=== PATIENT | male | born 1940 | race Caucasian/White ===

== ENCOUNTER 2021-12-30 15:40 | Emergency (ER) | payer OTHER, MEDICARE ==
[2021-12-30] MEDS ORDERED: HYDROcodone/Acetaminophen 10/325 mg Tablet ONE (17:02)
[2021-12-30] MEDS ORDERED: Fentanyl 100 MCG/2 ML VIAL ONE (17:48)
[2021-12-30 19:24] LABS: #Monocytes 0.6 10x3/uL (0.0-1.1); #Neutrophils 15.8 10x3/uL (1.5-8.4); %Basophils 0.2 % (0.0-2.0); %Monocytes 3.2 % (0.0-10.0); Hemoglobin 12.5 g/dL (13.5-17.5); Mean Corpuscular HGB CONC 33.2 g/dL (32.0-36.0); Mean Corpuscular Hemoglobin 31.1 pg (27.0-33.0); Mean Corpuscular Volume 93.5 fl (81.2-95.1); Mean Platelet Volume 9.8 fl (7.4-10.4); Platelet Count 279 10x3/uL (150-450); RBC Distribution Width 13.1 % (11.5-14.5); Red Blood Cell (RBC) Count 4.02 10x6/uL (4.32-5.72); White Blood Cell (WBC) Count 17.3 10x3/uL (3.5-10.5)
[2021-12-30 19:25] LABS: Anion Gap 19 mmol/L (10-20); BUN (Urea Nitrogen) 10 mg/dL (8.4-25.7); Calc. Creatinine Clearance 0 mL/min (70-130); Calcium 9.6 mg/dL (7.8-10.44); Carbon Dioxide 24 mmol/L (23-31); Chloride 95 mmol/L (98-107); Estimated GFR 86; Glucose 160 mg/dL (83-110); Potassium 4.7 mmol/L (3.5-5.1); Sodium 133 mmol/L (136-145)
== END 2021-12-30 19:32 | disposition home or self-care (01) ==
LOC: CSHERS 15:40
DX: S42.201A Unspecified fracture of upper end of right humerus, initial encounter for closed fracture (principal); S09.90XA Unspecified injury of head, initial encounter; I25.10 Atherosclerotic heart disease of native coronary artery without angina pectoris; E11.9 Type 2 diabetes mellitus without complications; I10 Essential (primary) hypertension; Z95.0 Presence of cardiac pacemaker; W01.0XXA Fall on same level from slipping, tripping and stumbling without subsequent striking against object, initial encounter
CPT/HCPCS: 36415; 70450; 80048; 85025; 96372; J3010

== ENCOUNTER 2023-01-14 19:20 | Inpatient (IN) | payer MEDICARE ==
[2023-01-14 21:28] LABS: #Basophils 0.1 10x3/uL (0.0-0.2); #Monocytes 1.3 10x3/uL (0.0-1.1); #Neutrophils 15.4 10x3/uL (1.5-8.4); %Basophils 0.3 % (0.0-2.0); %Eosinophils 0.1 % (0.0-6.0); %Lymphocytes 4.9 % (18.0-47.0); %Monocytes 7.2 % (0.0-10.0); %Neutrophils 86.9 % (40.0-75.0); Hematocrit 37.8 % (38.8-50.0); Hemoglobin 12.9 g/dL (13.5-17.5); Mean Corpuscular HGB CONC 34.1 g/dL (32.0-36.0); Mean Corpuscular Hemoglobin 31.2 pg (27.0-33.0); Mean Corpuscular Volume 91.5 fl (81.2-95.1); Mean Platelet Volume 9.1 fl (7.4-10.4); Platelet Count 381 10x3/uL (150-450); RBC Distribution Width 14.1 % (11.5-14.5); Red Blood Cell (RBC) Count 4.13 10x6/uL (4.32-5.72); White Blood Cell (WBC) Count 17.7 10x3/uL (3.5-10.5)
[2023-01-14 21:39] LABS: ALT (SGPT) 14 U/L (8-55); AST (SGOT) 22 U/L (5-34); Alkaline Phosphatase 134 U/L (40-110); Anion Gap 15 mmol/L (10-20); BUN (Urea Nitrogen) 9 mg/dL (8.4-25.7); Bilirubin, Total 1.1 mg/dL (0.2-1.2); Calc. Creatinine Clearance 0 mL/min (70-130); Calcium 8.5 mg/dL (7.8-10.44); Carbon Dioxide 26 mmol/L (23-31); Chloride 90 mmol/L (98-107); Estimated GFR 88; Globulin 2.9 g/dL (2.4-3.5); Glucose 202 mg/dL (83-110); Magnesium 1.4 mg/dL (1.6-2.6); Potassium 3.4 mmol/L (3.5-5.1); Protein, Total 5.9 g/dL (5.8-8.1); Sodium 128 mmol/L (136-145)
[2023-01-14 22:29] LABS: Bilirubin 1+ (Negative); Blood, Urine 10 (Negative); Clarity Clear (Clear); Glucose, Urine (Dipstick) Normal (Negative); Ketone, Urine Negative (Negative); Leukocyte Negative (Negative); Nitrite Negative (Negative); Protein, Urine (Dipstick) 30 mg/dl (Neg-Trace)
[2023-01-14] MEDS ORDERED: cefTRIAXone (ROCEPHIN) 1 GM VIAL ONE (22:30)
[2023-01-14 22:47] LABS: Bacteria/HPF Rare-Few HPF (None Seen); CAUTI Indications for Culture Alt mental st,lethar; Squamous Epithelial 0-3 HPF (0-3); WBC/HPF 0-3 HPF (0-3)
[2023-01-14 22:48] LABS: Urine Culture Reflex No No
[2023-01-14] MEDS ORDERED: HumaLOG 300 UNITS/3 ML VIAL SC PRN (23:40)
[2023-01-14] MEDS ORDERED: Dextrose 50% Abboject 50 ML SYRINGE SLOW IVP PRN (23:40)
[2023-01-14] MEDS ORDERED: Guaifenesin DM 100-10/5 ML UDCUP PO PRN (23:40)
[2023-01-14] MEDS ORDERED: Dextrose 5% in Water 1,000 ML IV PRN (23:40)
[2023-01-14] MEDS ORDERED: Calcium Carbonate 500 MG ChewTAB PO PRN (23:40)
[2023-01-14] MEDS ORDERED: Ondansetron PF 4 MG/2 ML Vial IVP PRN (23:40)
[2023-01-14] MEDS ORDERED: Glucagon 1 MG/ML KIT IM PRN (23:40)
[2023-01-14] MEDS ORDERED: Senokot S 8.6-50 MG TAB PO PRN (23:40)
[2023-01-15] MEDS ORDERED: Magnesium 2 GM/50 ML(in water) 2 GM in Premix Bag 1 BAG IVPB SCH (00:15)
[2023-01-15] MEDS ORDERED: Potassium Chloride 20 MEQ TAB PO SCH (00:15)
[2023-01-15] MEDS ORDERED: Ampicillin/Sulbactam 3 GM in Sodium Chloride 0.9% 100 ML IVPB SCH ×2 (00:15→06:00)
[2023-01-15] MEDS ORDERED: Sodium Chloride 0.9% 1,000 ML IV SCH (00:30)
[2023-01-15 00:51] LABS: SARS-CoV-2 NAA Rapid Test Not Detected (NotDetected)
[2023-01-15 01:02] LABS: #Monocytes 1.1 10x3/uL (0.0-1.1); %Basophils 0.2 % (0.0-2.0); %Eosinophils 0.1 % (0.0-6.0); %Monocytes 6.8 % (0.0-10.0); %Neutrophils 86.2 % (40.0-75.0); Hematocrit 36.6 % (38.8-50.0); Hemoglobin 12.2 g/dL (13.5-17.5); Mean Corpuscular HGB CONC 33.3 g/dL (32.0-36.0); Mean Corpuscular Hemoglobin 30.9 pg (27.0-33.0); Mean Corpuscular Volume 92.7 fl (81.2-95.1); Platelet Count 347 10x3/uL (150-450); RBC Distribution Width 14.2 % (11.5-14.5); Red Blood Cell (RBC) Count 3.95 10x6/uL (4.32-5.72); Troponin I 0.023 ng/mL (< 0.028); White Blood Cell (WBC) Count 16.2 10x3/uL (3.5-10.5)
[2023-01-15 01:20] LABS: Anion Gap 15 mmol/L (10-20); BUN (Urea Nitrogen) 8 mg/dL (8.4-25.7); Calc. Creatinine Clearance 0 mL/min (70-130); Calcium 8.2 mg/dL (7.8-10.44); Carbon Dioxide 28 mmol/L (23-31); Chloride 89 mmol/L (98-107); Estimated GFR 88; Glucose 182 mg/dL (83-110); Magnesium 1.4 mg/dL (1.6-2.6); Potassium 3.6 mmol/L (3.5-5.1); Sodium 128 mmol/L (136-145)
[2023-01-15 01:46] LABS: Thyroid Stimulating Hormone 0.7039 uIU/mL (0.35-4.94)
[2023-01-15 02:13] VITALS: BMI 23.1
[2023-01-15] MEDS: Ampicillin/Sulbactam 3 GM in Sodium Chloride 0.9% 100 ML IVPB SCH ×4 (03:04→22:00)
[2023-01-15] MEDS: Azithromycin 500 MG in Sodium Chloride 0.9% 250 ML 250 ML IVPB SCH (03:40)
[2023-01-15 04:15] LABS: Lactic Acid 2.1 mmol/L (0.5-2.2)
[2023-01-15 04:44] LABS: Legionella Urinary Ag Negative (Negative); Strep pneumo Urine Ag NEGATIVE (NEGATIVE)
[2023-01-15 09:55] LABS: ALT (SGPT) 15 U/L (8-55); AST (SGOT) 19 U/L (5-34); Albumin 2.9 g/dL (3.4-4.8); Alkaline Phosphatase 136 U/L (40-110); Anion Gap 18 mmol/L (10-20); BUN (Urea Nitrogen) 7 mg/dL (8.4-25.7); Bilirubin, Total 0.9 mg/dL (0.2-1.2); Calc. Creatinine Clearance 95 mL/min (70-130); Calcium 8.4 mg/dL (7.8-10.44); Carbon Dioxide 23 mmol/L (23-31); Chloride 91 mmol/L (98-107); Estimated GFR 92; Glucose 144 mg/dL (83-110); Magnesium 1.7 mg/dL (1.6-2.6); Protein, Total 5.9 g/dL (5.8-8.1); Sodium 128 mmol/L (136-145)
[2023-01-15] MEDS: Atenolol 25 MG TAB PO SCH (10:22)
[2023-01-15] MEDS: Prenatal Vitamin 1 TAB PO SCH (10:31)
[2023-01-15 13:36] LABS: Potassium, Urine 26.8 mmol/L
[2023-01-15 13:49] LABS: Vitamin B12 Greater than 2000 pg/mL (211-911)
[2023-01-15] MEDS ORDERED: Iopamidol 300 61% 100 ML VIAL FS ONE (13:58)
[2023-01-15] MEDS ORDERED: Magnesium Sulfate/D5W 1 GM/100 ML BAG IVPB SCH (20:45)
[2023-01-16] MEDS: Azithromycin 500 MG in Sodium Chloride 0.9% 250 ML 250 ML IVPB SCH (00:17)
[2023-01-16] MEDS: Ampicillin/Sulbactam 3 GM in Sodium Chloride 0.9% 100 ML IVPB SCH ×4 (03:55→21:49)
[2023-01-16] MEDS: Atenolol 25 MG TAB PO SCH (09:00)
[2023-01-16] MEDS: Prenatal Vitamin 1 TAB PO SCH (09:01)
[2023-01-16] MEDS ORDERED: Morphine 4 MG/ML VIAL SLOW IVP PRN (17:12)
[2023-01-16] MEDS ORDERED: Morphine 4 MG/ML VIAL SLOW IVP SCH (17:15)
[2023-01-16] MEDS: Brimonidine Tartrate 0.2% Ophth Soln 5 ml Bottle R EYE SCH (21:48)
[2023-01-16] MEDS: Timolol 0.5% Ophth Soln 5 ml Bottle R EYE SCH (22:14)
[2023-01-17] MEDS: Azithromycin 500 MG in Sodium Chloride 0.9% 250 ML 250 ML IVPB SCH (01:01)
[2023-01-17] MEDS: Acetaminophen 325 MG TAB PO PRN ×2 (03:22→13:42)
[2023-01-17] MEDS: Ampicillin/Sulbactam 3 GM in Sodium Chloride 0.9% 100 ML IVPB SCH ×2 (03:35→10:30)
[2023-01-17] MEDS: Atenolol 25 MG TAB PO SCH (09:59)
[2023-01-17] MEDS: Prenatal Vitamin 1 TAB PO SCH (10:00)
[2023-01-17] MEDS ORDERED: Furosemide 20 MG/2 ML VIAL SLOW IVP SCH (10:00)
[2023-01-17] MEDS: Brimonidine Tartrate 0.2% Ophth Soln 5 ml Bottle R EYE SCH (10:00)
[2023-01-17] MEDS: Timolol 0.5% Ophth Soln 5 ml Bottle R EYE SCH (10:01)
[2023-01-17 12:57] VITALS: BP 131/72; TEMP 97.5
== END 2023-01-17 15:00 | disposition hospice, home (50) | DRG 640 ==
LOC: CSHERS 19:20 → CSHTELE 01-15 02:01
PROVIDERS: ADMIT Student in an Organized Health Care Education/Training Program; ATTEND Internal Medicine
DX: E87.1 Hypo-osmolality and hyponatremia (principal); G93.41 Metabolic encephalopathy; C77.1 Secondary and unspecified malignant neoplasm of intrathoracic lymph nodes; C34.2 Malignant neoplasm of middle lobe, bronchus or lung; E87.20 Acidosis, unspecified; F03.90 Unspecified dementia, unspecified severity, without behavioral disturbance, psychotic disturbance, mood disturbance, and anxiety; E87.6 Hypokalemia; E83.42 Hypomagnesemia; I10 Essential (primary) hypertension; I25.10 Atherosclerotic heart disease of native coronary artery without angina pectoris; I48.0 Paroxysmal atrial fibrillation; E11.42 Type 2 diabetes mellitus with diabetic polyneuropathy; F17.220 Nicotine dependence, chewing tobacco, uncomplicated; D72.829 Elevated white blood cell count, unspecified; R68.84 Jaw pain; J98.4 Other disorders of lung; Z51.5 Encounter for palliative care; Z20.822 Contact with and (suspected) exposure to COVID-19; Z79.899 Other long term (current) drug therapy; Z79.84 Long term (current) use of oral hypoglycemic drugs; Z95.0 Presence of cardiac pacemaker; Z85.46 Personal history of malignant neoplasm of prostate; Z98.890 Other specified postprocedural states; Z90.49 Acquired absence of other specified parts of digestive tract; Z95.5 Presence of coronary angioplasty implant and graft
CPT/HCPCS: 36415; 36416; 70450; 70491; 71045; 71260; 80048; 80053; 81001; 82436; 82533; 82550; 82607; 83605; 83735; 83880; 84133; 84145; 84300; 84443; 84484; 85025; 86140; 87040; 87449; 87899; 93005; 93010; 93306; 94760; 96374; J0295; J0456; J0696; J1650; J1815; J1940; J2270; J3475; J3490; J7050; Q9967